=== PATIENT | male | born 1975 | race Caucasian/White ===

== ENCOUNTER 2022-10-17 00:29 | Emergency (ER) | payer SELFPAY ==
[~2022-10-17] VITALS: Ht 167.6 cm; Wt 73.0 kg
[2022-10-17 00:31] VITALS: BP 135/82
== END 2022-10-17 02:32 | disposition left against medical advice (07) ==
LOC: ER 00:29
DX: Z53.21 Procedure and treatment not carried out due to patient leaving prior to being seen by health care provider (principal)
CPT/HCPCS: 99281